=== PATIENT | male | born 2000 | race Two or more races ===

== ENCOUNTER 2025-06-07 11:07 | Emergency (ER) | payer OTHER, SELFPAY ==
[2025-06-07 11:32] VITALS: BP 118/85; PULSE 93; TEMP 37.1; O2SAT 96; BMI 31.6
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
[2025-06-07] MEDS: IBUPROFEN 400 MG TABLET 800 MG PO (12:23)
[2025-06-07] MEDS: BACITRACIN 0.9 GM PACKET 1 PACKET TOPICAL (12:23)
--- NOTE | 2025-06-07 13:48 | CT_ITS ---
[facility] [place] [id number] Patient Name: MAYCOL LORENZO MRN: [id number] date: 2000 Sex: M Assigned Patient Location: ER Current Patient Location: [facility] Accession/Order Number: [id number] Exam Date: 06/07/2025 14:00 Report Date: 06/07/2025 14:36 At the request of: GÓMEZ LÓPEZ Procedure: CT hip RT wo con CT Right hip without contrast CLINICAL HISTORY: rule out right hip/acetabulum fx on xr COMPARISON: Pelvis/right hip pelvis/right hip 06/07/2025 TECHNIQUE: Contiguous axial unenhanced images were obtained through right hip with 3-D reconstructions.. This CT exam was performed using one or more following dose reduction techniques: Automated exposure control, adjustment of the mA and/or kV according to patient size, or use of iterative reconstruction technique. FINDINGS: There is a minimally comminuted fracture involving the posterior aspect the right acetabulum. There is 6 mm of posterior distraction of the fracture appearance. There is a nondisplaced fractures identified involving the acetabulum noted as well image 35, series 3. There is a curvilinear fracture fragment within the hip joint. Associated hemarthrosis.. No definite fracture involving the femoral head or neck.. Contusion injury identified involving the musculature posteriorly. CT/CT hip RT wo con IMPRESSION: Posterior acetabular fracture minimally comminuted with associated fragments within the joint space as well as hemarthrosis. Muscular contusion injury Impression dictated by: Abel Cowan M.D. 06/07/2025 2:36 PM Dictation Location: [place] [address] Electronically authenticated by: [id number] Y Date: 06/07/2025 14:36
--- OUTSIDE RECORDS SUMMARY | 2025-06-07 13:53 | XMS_ITS | Clinical Summary ---
Author Organization [employer] ([facility] 02/25/2024) ([facility] [employer] [employer] [place]) Address [address] [place] [address] Care Team Providers Care Rabbit Fancier Name Role Phone Wei Bentley Primary Care Provider [phone]- [phone] Allergies No known active allergies Medications MedicationSigDispense QuantityRefillsLast FilledStart DateEnd DateStatus HYDROcodone-acetaminophen (NORCO) 5-325 MG PO Tab take 1 Tablet by mouth every 8 hours as needed for FOR PAIN for up to 7 doses. 7 Tablet 02/06/2022ctive ibuprofen (MOTRIN) 600 MG PO Tab take 1 Tablet by mouth every 6 hours as needed for FOR FEVER or FOR MODERATE PAIN for up to 14 doses. 14 Tablet 02/06/2022ctive ondansetron (ZOFRAN) 4 MG PO TABLET DISPERSIBLE take 1 Tablet by mouth every 8 hours as needed for FOR NAUSEA/VOMITING. 7 Tablet 02/06/2022ctive Social History Tobacco UseTypesPacks/DayYears UsedDateSmoking Tobacco: NeverSmokeless Tobacco: NeverAlcohol UseStandard Drinks/WeekCommentsNo0 (1 standard drink = 0.6 oz pure alcohol)Sex and Gender InformationValueDate RecordedSex Assigned at BirthNot on fileLegal OxsPerw5105/06/2015 2:10 PM EDTGender IdentityNot on fileSexual OrientationNot on file Last Filed Vital Signs Vital SignReadingTime TakenCommentsBlood Jvnlxpao597/8707 9:50 PM EDT Wumsm9556 9:50 PM SKBUgbptvwqfpz32.8 ??C (96.5 ??F)02/06/2022 9:50 PM EDTRespiratory Gkaq4435 9:50 PM EDTOxygen Fakjhvcbij621%02/06/2022 9:50 PM EDTInhaled Oxygen Concentration--Jhtwrq53.3 kg (210 lb)02/06/2022 9:50 PM EDT Zmeafo851.8 cm (5' 10 )02/06/2022 9:50 PM EDTBody Mass Index30.13002/06/2022 9:50 PM EDT Plan of Treatment Health MaintenanceDue DateLast DoneCommentsSCREENING: HEPATITIS 2002 SCREENING: SDTQYIRFUT28/10/2014SCREENING:HIV2017Vaccines: Meningococcal B (1 of 2 - Standard)2018HEALTH MAINTENANCE EXAM (ADULT)2021VACCINE: TETANUS,DIPHTHERIA BOOSTER (TD BOOSTER) EVERY 10 YEARS2021VACCINE: TETANUS,DIPHTHERIA,PERTUSSIS (TDAP) FIRST DOSE ADULT2021VACCINE: INFLUENZA (#1), 06/09/2008VACCINE: COVID-19 ( season) VACCINE: HEPATITIS REgteceusp52/18/2003, 2002, 2002Vaccines: UXPHhlwosssh14/06/2004, 01/22/2003, 2002, Additional history existsVaccines: UYOFgvoaihyhhct89/30/2004, 08/12/2003Pneumococcal Vaccine: Pediatrics (0 to 5 Years) and At-Risk Patients (6 to 64 Years)Aged Out 03/03/2005, 01/22/2003, 2002, Additional history existsNo longer eligible based on patient's age to complete this topicVaccines: FOVXgcanvcir67/05/2007, 01/23/2004, 08/12/2003, Additional history existsVaccines: VaricellaDiscontinued 04/11/2007, 08/12/2003VACCINE: HEPATITIS QQtppxfpri71/02/2008, 04/11/2007 Vaccines: MeningococcalAged Out02/28/2014No longer eligible based on patient's age to complete this topicVaccines: PTEAgpxxpgnc66/16/2015, 05/01/2014, 02/28/2014Vaccines: RotavirusAged OutNo longer eligible based on patient's age to complete this topic Care Teams Team MemberRelationshipSpecialtyStart DateEnd Date Wei Bentley [address] [place] [address] PCP - General12/06/21
--- OUTSIDE RECORDS SUMMARY | 2025-06-07 13:53 | XMS_ITS | Referral Summary ---
Author Organization [employer] ([facility] 02/25/2024) ([facility]) Address [address] [place] [address] Care Team Providers Care Cane Piler Name Role Phone Wei Bentley Primary Care Provider +1- [phone] Allergies No known active allergies Medications MedicationSigDispense [...] InformationValueDate RecordedSex Assigned at BirthNot on fileLegal QalNlxz6605/06/2015 2:10 PM EDTGender IdentityNot on fileSexual OrientationNot on file Last Filed Vital Signs Vital SignReadingTime TakenCommentsBlood Ytdltowf508/8707 9:50 PM EDT Pfthb0408 9:50 PM JRCHtdnyfxkpaj50.8 ??C (96.5 ??F)02/06/2022 9:50 PM EDTRespiratory Lwlc8133 9:50 PM EDTOxygen Tgonfjobht517%02/06/2022 9:50 PM EDTInhaled Oxygen Concentration--Qwcfhf03.3 kg (210 lb)02/06/2022 9:50 PM EDT Otubjt660.8 cm (5' 10 )02/06/2022 9:50 PM EDTBody Mass Index30.13002/06/2022 9:50 PM EDT Plan of Treatment Not on file Care Teams Team MemberRelationshipSpecialtyStart DateEnd Date Wei Bentley [address] [place] [address] [facility]12/06/21
--- OUTSIDE RECORDS SUMMARY | 2025-06-07 13:54 | XMS_ITS | Clinical Summary ---
Author Organization [facility] Address [address] [place] [address] Care Team Providers Care Sourcing Analyst Name Role Phone Unavailable Primary Care Provider Unavailabl e Social History Tobacco UseTypesPacks/DayYears UsedDateSmoking Tobacco: Never AssessedSex and Gender InformationValueDate RecordedSex Assigned at BirthNot on fileLegal Sex Male08/20/2019 8:45 AM ESTGender IdentityNot on fileSexual OrientationNot on file Plan of Treatment Not on file
[2025-06-07 16:50] VITALS: BP 117/76; PULSE 76; O2SAT 99
[2025-06-07] MEDS: HYDROCODONE/ACET 5-325 MG TABLET 1 TAB PO (17:05)
== END 2025-06-07 17:27 | disposition short-term general hospital (02) ==
PROVIDERS: Emergency Provider Emergency Medicine
DX: S32.401A Unspecified fracture of right acetabulum, initial encounter for closed fracture (principal); S00.81XA Abrasion of other part of head, initial encounter; V47.6XXA Car passenger injured in collision with fixed or stationary object in traffic accident, initial encounter
CPT/HCPCS: 73502; 73700; 76376; 99284